=== PATIENT | female | born 1990 | race Caucasian/White ===

== ENCOUNTER 2021-01-26 17:26 | Emergency (ER) | payer OTHER, SELFPAY ==
[2021-01-26 17:30] VITALS: BP 159/84; PULSE 72; RESP 18; TEMP 36.6; O2SAT 98; BMI 36.0
--- NOTE | 2021-01-26 18:20 | ED_ITS ---
HPI - Eye Problem General Chief complaint: Eye Problems Stated complaint: eye issue Time Seen by Provider: 01/26/21 17:50 Source: patient and family Mode of arrival: ambulatory Limitations: no limitations History of Present Illness HPI Narrative: 30-year-old female presenting to the ED with a stye to her left lower eyelid since 01/14/2021. She reports that she was seen at another place and was given p.o. antibiotics Bactrim b.i.d. x 5 days and erythromycin. Patient reports that her swelling improved although she feels like she needed antibiotics for longer. She denies any visual changes or any injuries or any thoughts of foreign bodies or purulent drainage or any other symptoms complaints or concerns at this time. chief complaint: other (Left lower eyelid swelling) Onset (ago): day(s) (Since 01/14/2021) Onset description: gradual Duration: constant and other (Initially improved after she took Bactrim double strength b.i.d. x5 days and her rhythm ice and ointment although 1 she took it after 5 days it started worsening again) Location: left eye Eye Symptoms: other (Lump on left lower eyelid) Place: home Mechanism: none Severity: mild If Pain, Quality: aching Associated symptoms: none Treatments Prior to Arrival: other (See above) Related Data Home Medications Medication Instructions Recorded Confirmed cholecalciferol (vitamin D3) 25 25 mcg PO DAILY 12/07/20 12/07/20 mcg (1,000 unit) capsule fluoxetine 20 mg capsule mg PO 12/07/20 12/07/20 lorazepam 1 mg tablet 1 mg PO BID 12/07/20 12/07/20 Previous Rx's Medication Instructions Recorded albuterol sulfate 90 mcg/actuation 1 inh INHALATION QID PRN 30 Days 12/07/20 aerosol inhaler (ProAir HFA) #18 g budesonide-formoterol HFA 160 2 puff INHALATION BID 30 Days 12/07/20 mcg-4.5 mcg/actuation aerosol #10.2 g inhaler (Symbicort) omeprazole 20 mg capsule,delayed 20 mg PO DAILY 90 Days #90 cap 12/07/20 release erythromycin 5 mg/gram (0.5 %) eye 0.5 inch OPHTHALMIC (EYE) TID #1 g 01/14/21 ointment sulfamethoxazole 800 1 tab PO BID 5 Days #10 tab 01/14/21 mg-trimethoprim 160 mg tablet (Bactrim DS) cephalexin 500 mg capsule 500 mg PO Q6H 14 Days #56 cap 01/26/21 erythromycin 5 mg/gram (0.5 %) eye 0.5 inch OPHTHALMIC (EYE) QID 7 01/26/21 ointment Days #3.5 g sulfamethoxazole 800 1 tab PO BID 14 Days #28 tab 01/26/21 mg-trimethoprim 160 mg tablet (Bactrim DS) Allergies Allergy/AdvReac Type Severity Reaction Status Date / Time No Known Allergies Allergy Verified 01/14/21 15:38 Review of Systems Review of Systems: Constitutional : No fevers, no chills, No changes in activity, No lethargy, No recent prior head injury, No agitation, No increased fussiness ENT/Mouth : No Ear Pain, No Nasal discharge/drainage Eyes: + left lower eyelid swelling, No Vision changes/blurry/decreased vision, No Eye Pain, No Swelling, No Redness, No Foreign Body, No Photophobia, no discharge, no drainage, no itching, no contact lens uses, no recent welding, no bleeding Cardiovascular : No Chest Pain, No SOB Respiratory : No Cough Gastrointestinal : No Nausea, No Vomiting, No abdominal Pain Genitourinary : No Dysuria, No Urinary Frequency, No Urinary Incontinence, No Urgency, No Flank Pain Musculoskeletal : No joint pain, No neck stiffness, No back pain/injury Skin : No lacerations Neuro : No unsteady gait, No Paresthesias, No Loss of Consciousness, No altered mental status, No dizziness, No Headache Denies past medical history of HIV, recent trauma, coagulopathy, recent spinal/ epidural procedure, new medication, URI symptoms, close contacts with similar symptoms, tick bite, or known CO2 exposure. Yes all other systems are reviewed and are negative PMFSH Past Medical History Attestation statement: The following information was validated with the patient. Medical History Anxiety Depression Social History Social History Housing: Apartment Patient Tobacco Use Status: Former Tobacco user Quit Date: 5 years ago e-Cigarette/Vaping Use: Never Used Advance Directives: No Advance Directives Information Provided: No Patient : No Current occupational status: unemployed Physical Exam Vital Signs: Vital Signs: Last Vital Signs Temp 98.8 F 01/26/21 18:25 Pulse 68 01/26/21 18:25 Resp 16 01/26/21 18:25 BP 102/68 01/26/21 18:25 Pulse Ox 99 01/26/21 18:25 BMI result Body Mass Index 36.0 vital signs have been reviewed as normal and appeared to be correct. Blood pressure normal. Heart rate normal. Respiration rate normal. Temperature normal. Oxygen saturation normal. Appearance: Alert. Oriented X3. No acute distress. Head: Normal external exam. Normocephalic. Atraumatic Eyes: PERRLA. EOMI. Conjunctiva are normal. Cornea are normal. Funduscopic exam within normal limits. Sclera normal. Right eyelids within normal limits. Left eyelid with a stye no drainage noted. No papilledema noted. Anterior chamber normal. No photophobia noted. Pressure to right eye is . Pressure to left eye is . Visual acuity to right eye 20/. Visual acuity to left eye 20/. ENT: EAC normal. TM's Normal. Pharynx normal. Uvula midline. Moist mucous mem branes. Neck: Normal inspection. Neck supple. FROM. No adenopathy. No meningeal signs. CVS: Normal heart rate and rhythm. Heart sound normal. No murmurs noted. Pulses normal throughout. Respiratory: No respiratory distress. Painless inspiration. Breath sounds normal. Back: Full range of motion noted. Skin: Skin warm and dry. Normal skin color. Normal skin turgor. No rashes/lesions/lacerations noted. Extremities: Extremities exhibit normal range of motion. Extremities nontender. Neuro: Oriented X 3. No motor deficit. No sensory deficit. Reflexes normal. Course Course Course Narrative: 30-year-old female presenting to the ED with a stye to her left lower eyelid since 01/14/2021. She reports that she was seen at another place and was given p.o. antibiotics Bactrim b.i.d. x 5 days and erythromycin. Patient reports that her swelling improved although she feels like she needed antibiotics for longer. She denies any visual changes or any injuries or any thoughts of foreign bodies or purulent drainage or any other symptoms complaints or concerns at this time. Patient is now s/p I&D with needle aspiration to the stye to his left lower eyelid. Patient tolerated procedure well. No complications. Will DC home with another course of Bactrim as patient reports her symptoms were improving and erythromycin instructions return if any new or worsening symptoms to follow up with Dr. Hansen. Patient understands agrees with this plan. MDM - Eye Problem Medical Records Attestation: I reviewed the patient's medical records. Procedures Abscess I/D Site: other (Left lower eyelid) Side (if applicable): left Technique: needle aspiration Sent for culture/gram staining?: No Irrigation: Yes Packing used?: none Complications: other (No complications) Discharge Plan Discharge Clinical Impression: External hordeolum Patient Disposition: Home, Self-Care Instructions: [facility] (ED) Prescriptions: New sulfamethoxazole-trimethoprim [Bactrim DS] 800-160 mg tablet 1 tab PO BID 14 Days Qty: 28 RF: 0 cephalexin 500 mg capsule 500 mg PO Q6H 14 Days Qty: 56 RF: 0 erythromycin 5 mg/gram (0.5 %) ointment 0.5 inch ophthalmic (eye) QID 7 Days Qty: 3.5 RF: 1 No Action fluoxetine 20 mg capsule PO RF: 0 lorazepam 1 mg tablet 1 mg PO BID RF: 0 cholecalciferol (vitamin D3) 25 mcg (1,000 unit) capsule 25 mcg PO DAILY RF: 0 omeprazole 20 mg capsule,delayed release(DR/EC) 20 mg PO DAILY 90 Days Qty: 90 RF: 3 budesonide-formoterol [Symbicort] 160-4.5 mcg/actuation HFA aerosol inhaler 2 puff inhalation BID 30 Days Qty: 10.2 RF: 3 albuterol sulfate [ProAir HFA] 90 mcg/actuation HFA aerosol inhaler 1 inh inhalation QID PRN (Reason: shortness of breath or wheezing) 30 Days Qty: 18 RF: 6 sulfamethoxazole-trimethoprim [Bactrim DS] 800-160 mg tablet 1 tab PO BID 5 Days Qty: 10 RF: 0 erythromycin 5 mg/gram (0.5 %) ointment 0.5 inch ophthalmic (eye) TID Qty: 1 RF: 0 Referrals: Forest Hansen [Physician] - 2 days Nenita Morrow MD [Primary Care Provider] - 2 days Print Language: Welsh
[2021-01-26 18:25] VITALS: BP 102/68; PULSE 68; RESP 16; TEMP 37.1; O2SAT 99
[2021-01-26] MEDS: Erythromycin Base 0.5% Oph Oin 1 GM TUBE 1 CM EYE-LEFT (18:51)
[2021-01-26] MEDS: Sulfamethox/Trimeth 800/160 TABLET 1 TAB PO (18:51)
== END 2021-01-26 18:58 | disposition home or self-care (01) ==
PROVIDERS: Emergency Provider Emergency Medicine; PCP Internal Medicine
DX: H00.015 Hordeolum externum left lower eyelid (principal); H00.035 Abscess of left lower eyelid; Z79.899 Other long term (current) drug therapy
CPT/HCPCS: 67700; 99283; 99284

== ENCOUNTER 2021-04-27 06:32 | Outpatient (REF) | payer OTHER, SELFPAY ==
[2021-04-27 07:19] LABS: Hematocrit 42.9 % (37.0-47.0); Hemoglobin 14.4 g/dl (12.0-16.0); Mean Corpuscular HGB Conc 33.6 g/dl (31.0-35.0); Mean Corpuscular Hemoglobin 30.5 pg (27.0-33.0); Mean Corpuscular Volume 90.9 fL (80.0-98.0); Mean Platelet Volume 9.9 fL (9.4-12.3); Platelet Count 359 X10*3/uL (160-400); Red Blood Count 4.72 X10*6/uL (4.20-5.50); Red Cell Distribution Width 12.5 % (11.0-16.0); White Blood Count 11.9 X10*3/uL (4.8-10.8)
[2021-04-27 08:09] LABS: Atypical Lymph Absolute Manual 0.5 x10*3/uL; Atypical Lymphs Percent Manual 4 % (0-6); Basophils Abs Manual 0.6 X10*3/uL (0.0-0.2); Basophils Percent Manual 5 % (0-2); Eosinophils Absolute Manual 0.5 X10*3/uL (0.0-0.4); Eosinophils Percent Manual 4 % (0-4); Lymphocytes Absolute Manual 5.1 X10*3/uL (1.2-4.9); Lymphocytes Percent Manual 43 % (20-40); Monocytes Absolute Manual 0.6 X10*3/uL (0.1-1.2); Monocytes Percent Manual 5 % (2-11); Neutrophils Percent Manual 39 % (45-73); TSH reflex Free T4 4.64 uIU/mL (0.32-4.0)
[2021-04-27 08:10] LABS: Alanine Aminotransferase 13 U/L (0-31); Albumin Level 4.2 g/dL (3.5-5.0); Alkaline Phosphatase 69 U/L (39-117); Anion Gap 13 (12-20); Aspartate Amino Transferase 16 U/L (5-31); Bilirubin Total 0.3 mg/dL (0.0-1.0); Blood Urea Nitrogen 10 mg/dL (9-16); Calcium 9.7 mg/dL (8.4-10.2); Carbon Dioxide 27 mmol/L (22-29); Chloride 105 mmol/L (96-108); Cholesterol 160 mg/dL; Estimated Glomerular Filt Rate > 60; Glucose Fasting 80 mg/dL (60-99); HDL Cholesterol 42 mg/dL; LDL Cholesterol Calculated 95 mg/dl; Platelet Estimate NORMAL (NORMAL); Platelet Morphology Comment NORMAL; Potassium 4.4 mmol/L (3.3-5.1); RBC Morphology NORMAL; Sodium 141 mmol/L (135-145); Total Protein 7.2 g/dL (6.5-8.0); Triglycerides 116 mg/dL
[2021-04-27 08:52] LABS: Free T4 (Free Thyroxine) 0.92 ng/dL (0.71-1.85)
[2021-04-27 13:45] LABS: Band Neutrophils Percent 0 % (3-5); Neutrophils Absolute Manual 4.6 X10*3/uL (2.0-8.3)
== END 2021-04-27 06:33 | disposition home or self-care (01) ==
LOC: HO.LAB 06:32
PROVIDERS: PCP Internal Medicine; Visit Provider Internal Medicine
DX: Z00.01 Encounter for general adult medical examination with abnormal findings (principal); J45.20 Mild intermittent asthma, uncomplicated; K21.9 Gastro-esophageal reflux disease without esophagitis; E66.09 Other obesity due to excess calories
CPT/HCPCS: 36415; 80053; 80061; 84439; 84443; 85007; 85025; 85027

== ENCOUNTER 2021-06-20 11:09 | Outpatient (REF) | payer OTHER, SELFPAY ==
[2021-06-20 11:14] VITALS: BP 125/78; PULSE 75; RESP 16; TEMP 37.1; O2SAT 96
[2021-06-20 11:15] VITALS: BMI 35.2
[2021-06-20 12:42] VITALS: BP 150/80; PULSE 78; RESP 16; O2SAT 100
== END 2021-06-20 11:10 | disposition home or self-care (01) ==
LOC: HO.MS 11:09
PROVIDERS: PCP Internal Medicine; Visit Provider Ophthalmology
PROC: (CPT 67800; principal; 2021-06-20 13:40)
DX: H00.11 Chalazion right upper eyelid (principal); H00.15 Chalazion left lower eyelid; H02.881 Meibomian gland dysfunction right upper eyelid; H02.884 Meibomian gland dysfunction left upper eyelid; F32.9 Major depressive disorder, single episode, unspecified; Z79.899 Other long term (current) drug therapy
CPT/HCPCS: 67800; J3300

== ENCOUNTER 2021-07-22 11:22 | Outpatient (REF) | payer OTHER, SELFPAY ==
[2021-07-22 11:32] LABS: MANUAL DIFF FLAG NO
[2021-07-22 11:47] LABS: Basophils Percent Auto 0.3 % (0-2); Eosinophils Absolute Auto 0.2 X10*3/uL (0.0-0.4); Eosinophils Percent Auto 1.8 % (0-4); Hematocrit 44.9 % (37.0-47.0); Hemoglobin 15.3 g/dl (12.0-16.0); Imm Gran Abs Auto 0.03 X10*3/uL (0.00-0.03); Imm Gran Pct Auto 0.3 % (0.0-0.4); Lymphocytes Absolute Auto 3.6 X10*3/uL (1.2-4.9); Mean Corpuscular HGB Conc 34.1 g/dl (31.0-35.0); Mean Corpuscular Volume 90.9 fL (80.0-98.0); Mean Platelet Volume 9.7 fL (9.4-12.3); Monocytes Absolute Auto 0.7 X10*3/uL (0.1-1.2); Monocytes Percent Auto 6.2 % (2-11); Neutrophils Absolute Auto 6.1 x10*3/uL (2.0-8.3); Neutrophils Percent Auto 57.4 % (45-73); Platelet Count 344 X10*3/uL (160-400); Red Blood Count 4.94 X10*6/uL (4.20-5.50); Red Cell Distribution Width 12.5 % (11.0-16.0); White Blood Count 10.6 X10*3/uL (4.8-10.8)
[2021-07-22 13:25] LABS: TSH reflex Free T4 1.43 uIU/mL (0.32-4.0)
== END 2021-07-22 11:23 | disposition home or self-care (01) ==
LOC: HO.LAB 11:22
PROVIDERS: PCP Internal Medicine; Visit Provider Internal Medicine
DX: Z00.01 Encounter for general adult medical examination with abnormal findings (principal); R79.89 Other specified abnormal findings of blood chemistry; E66.09 Other obesity due to excess calories; K21.9 Gastro-esophageal reflux disease without esophagitis; J45.20 Mild intermittent asthma, uncomplicated
CPT/HCPCS: 36415; 84443; 85025

== ENCOUNTER 2021-10-17 11:20 | Emergency (ER) | payer OTHER, SELFPAY ==
[2021-10-17 11:46] VITALS: BP 142/69; PULSE 65; RESP 19; TEMP 36.6; O2SAT 98; BMI 32.5
[2021-10-17] MEDS: Tetracaine HCl/PF 0.5% Oph Sol 4 ML DROPS 1 DROP EYE-LEFT (15:00)
[2021-10-17] MEDS: Fluorescein Sodium STRIP 1 STRIP EYE-LEFT (15:00)
--- NOTE | 2021-10-17 15:11 | ED.EYEPROB ---
HPI - Eye Problem General Chief complaint: Eye Problems Stated complaint: L eye red/irritation Time Seen by Provider: 10/17/21 14:55 Source: patient Mode of arrival: ambulatory Limitations: no limitations History of Present Illness HPI Narrative: Patient presents emergency department for evaluation of the left eye itchiness and question of foreign body. She states that she awoke this morning and was itching her eye then she suddenly felt discomfort. She thought after looking in the mirror that she could see what she describes as a tear/ film that would not fall. Her symptoms have overall improved since this morning. But still has some mild itchiness. She does report a history of recurrent styes and watery eyes with itchiness at baseline Related Data Home Medications Medication Instructions Recorded Confirmed cholecalciferol (vitamin D3) 25 25 mcg PO DAILY 12/07/20 07/27/21 mcg (1,000 unit) capsule fluoxetine 20 mg capsule mg PO 12/07/20 07/27/21 lorazepam 1 mg tablet 1 mg PO BID 12/07/20 07/27/21 Previous Rx's Medication Instructions Recorded albuterol sulfate 90 mcg/actuation 1 inh inhalation QID PRN shortness 12/07/20 aerosol inhaler (ProAir HFA) of breath or wheezing 30 days #18 grams omeprazole 20 mg capsule,delayed 20 mg PO DAILY 90 days #90 caps 12/07/20 release erythromycin 5 mg/gram (0.5 %) eye 0.5 inch ophthalmic (eye) TID #1 g 01/14/21 ointment budesonide-formoterol HFA 160 2 puff inhalation BID 30 days 05/04/21 mcg-4.5 mcg/actuation aerosol #10.2 grams inhaler (Symbicort) nitrofurantoin 100 mg PO Q12H 3 days #6 caps 05/04/21 monohydrate/macrocrystals 100 mg capsule (Macrobid) Allergies Allergy/AdvReac Type Severity Reaction Status Date / Time No Known Allergies Allergy Verified 07/27/21 16:02 Review of Systems Review of Systems: Eye: Left eye itchiness, foreign body sensation PMFSH Past Medical History Attestation statement: The following information was validated with the patient. Source: old records reviewed Medical History Anxiety Depression Family History Family History Mother Mental health disorder Social History Social History Housing: Apartment Patient Tobacco Use Status: Former Tobacco user Quit Date: 5 years ago e-Cigarette/Vaping Use: Never Used Advance Directives: No Advance Directives Information Provided: No Current occupational status: unemployed Cognitive needs: No Hearing needs: No Vision needs: Yes Physical Exam Vital Signs: Vital Signs: Last Vital Signs Temp 98 F 10/17/21 11:46 Pulse 65 10/17/21 11:46 Resp 19 10/17/21 11:46 BP 142/69 H 10/17/21 11:46 Pulse Ox 98 10/17/21 11:46 O2 Del Method 10/17/21 11:46 BMI result Body Mass Index 32.5 Appearance: Alert.?Oriented to person, place and time. No acute distress.?Normal affect. Eyes: Pupils equal, round and reactive to light.? Sclera white conjunctiva pink. Eye lash present to the left lateral lower canthus ENT: Pharynx normal.?? Neck: Normal inspection.? Neck supple.?? CVS: Heart sounds normal. Normal heart rate and rhythm.? Pulses normal.?? Respiratory: No respiratory distress.? Lung sounds clear to auscultation bilaterally?? Abdomen: Soft and non-tender. Skin: Skin warm and dry.? Normal skin color.? Extremities: No lower extremity edema.? Neuro: Moves all extremities spontaneously. Sensation intact bilaterally. No motor deficits Ambulates with normal steady gait. Course Course Course Narrative: Patient is a 30-year-old female who presents to the emergency department for evaluation of left eye itchiness wateriness. This reportedly occurs at baseline however seemed worse today and she thought as though there was a foreign body or film to the eye. Upon examination there was an eyelash stuck in the lateral canthus which was removed. No fluorescein uptake. Not consistent with corneal abrasion, sclerae disc, perceptual or orbital cellulitis. May be early conjunctivitis however given she has these symptoms chronically would advise continuing to monitor, using moist compresses, and gentle lid scrubs has previously performing. 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 Discussed worrisome signs and symptoms to return back to the emergency department for periods questions were answered, and patient was discharged home in stable condition. MDM - Eye Problem Medical Records Attestation: I reviewed the patient's medical records. Discharge Plan Discharge Clinical Impression: Watery eyes Patient Disposition: Home, Self-Care Additional Instructions: An eyelash was removed from your eye today. There is no evidence of an abrasion or scratch to the surface of your eye As we discussed at this time it does not appear as though you have a bacterial infection of the eye Continue with warm compresses and gentle lid scrubs. 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 [employer] as needed Return to the emergency with any or worsening symptoms or concerns Prescriptions: No Action nitrofurantoin monohyd/m-cryst [Macrobid] 100 mg capsule 100 mg PO Q12H 3 Days Qty: 6 0RF Rx Instructions: must administer with a meal/food budesonide-formoterol [Symbicort] 160-4.5 mcg/actuation HFA aerosol inhaler 2 puff inhalation BID 30 Days Qty: 10.2 3RF fluoxetine 20 mg capsule PO lorazepam 1 mg tablet 1 mg PO BID cholecalciferol (vitamin D3) 25 mcg (1,000 unit) capsule 25 mcg PO DAILY omeprazole 20 mg capsule,delayed release(DR/EC) 20 mg PO DAILY 90 Days Qty: 90 3RF albuterol sulfate [ProAir HFA] 90 mcg/actuation HFA aerosol inhaler 1 inh inhalation QID PRN (Reason: shortness of breath or wheezing) 30 Days Qty: 18 6RF erythromycin 5 mg/gram (0.5 %) ointment 0.5 inch ophthalmic (eye) TID Qty: 1 0RF
== END 2021-10-17 16:27 | disposition home or self-care (01) ==
PROVIDERS: Emergency Provider Emergency Medicine; PCP Internal Medicine
DX: S00.252A Superficial foreign body of left eyelid and periocular area, initial encounter (principal); X58.XXXA Exposure to other specified factors, initial encounter; Y93.9 Activity, unspecified; Y92.9 Unspecified place or not applicable; Y99.9 Unspecified external cause status
CPT/HCPCS: 99283

== ENCOUNTER 2022-01-21 09:01 | Outpatient (REF) | payer OTHER, SELFPAY ==
[2022-01-21 09:29] LABS: MANUAL DIFF FLAG NO
[2022-01-21 09:57] LABS: Basophils Absolute Auto 0.1 X10*3/uL (0.0-0.2); Basophils Percent Auto 0.7 % (0-2); Eosinophils Absolute Auto 0.3 X10*3/uL (0.0-0.4); Eosinophils Percent Auto 3.8 % (0-4); Hematocrit 42.1 % (37.0-47.0); Hemoglobin 14.2 g/dl (12.0-16.0); Imm Gran Abs Auto 0.02 X10*3/uL (0.00-0.03); Imm Gran Pct Auto 0.2 % (0.0-0.4); Lymphocytes Absolute Auto 3.3 X10*3/uL (1.2-4.9); Lymphocytes Percent Auto 40.4 % (20-40); Mean Corpuscular HGB Conc 33.7 g/dl (31.0-35.0); Mean Corpuscular Hemoglobin 31.8 pg (27.0-33.0); Mean Corpuscular Volume 94.2 fL (80.0-98.0); Mean Platelet Volume 9.7 fL (9.4-12.3); Monocytes Absolute Auto 0.7 X10*3/uL (0.1-1.2); Monocytes Percent Auto 8.3 % (2-11); Neutrophils Absolute Auto 3.8 x10*3/uL (2.0-8.3); Neutrophils Percent Auto 46.6 % (45-73); Platelet Count 327 X10*3/uL (160-400); Red Blood Count 4.47 X10*6/uL (4.20-5.50); Red Cell Distribution Width 11.9 % (11.0-16.0); White Blood Count 8.2 X10*3/uL (4.8-10.8)
[2022-01-21 10:32] LABS: Alanine Aminotransferase 16 U/L (0-31); Albumin Level 4.3 g/dL (3.5-5.0); Alkaline Phosphatase 65 U/L (39-117); Anion Gap 12 (12-20); Aspartate Amino Transferase 14 U/L (5-31); Bilirubin Total 0.5 mg/dL (0.0-1.0); Blood Urea Nitrogen 10 mg/dL (9-16); Calcium 9.7 mg/dL (8.4-10.2); Carbon Dioxide 27 mmol/L (22-29); Chloride 103 mmol/L (96-108); Cholesterol 147 mg/dL; Estimated Glomerular Filt Rate > 60; Glucose Fasting 87 mg/dL (60-99); HDL Cholesterol 43 mg/dL; LDL Cholesterol Calculated 93 mg/dl; Potassium 4.1 mmol/L (3.3-5.1); Sodium 138 mmol/L (135-145); TSH reflex Free T4 1.75 uIU/mL (0.32-4.0); Total Protein 7.1 g/dL (6.5-8.0); Triglycerides 57 mg/dL
== END 2022-01-21 09:02 | disposition home or self-care (01) ==
LOC: HO.LAB 09:01
PROVIDERS: PCP Internal Medicine; Visit Provider Internal Medicine
DX: Z00.01 Encounter for general adult medical examination with abnormal findings (principal); E66.09 Other obesity due to excess calories; K21.9 Gastro-esophageal reflux disease without esophagitis; J45.40 Moderate persistent asthma, uncomplicated; F20.9 Schizophrenia, unspecified
CPT/HCPCS: 36415; 80053; 80061; 84443; 85025

== ENCOUNTER 2023-01-06 08:48 | Outpatient (REF) | payer OTHER, SELFPAY ==
[2023-01-06 09:29] LABS: Estimated Average Glucose 94 mg/dL; Hemoglobin A1c % 4.9 % (<6.0)
[2023-01-06 09:55] LABS: Cholesterol 151 mg/dL (<200); HDL Cholesterol 53 mg/dL (>40); LDL Cholesterol Calculated 88 mg/dL (<100); Triglycerides 54 mg/dL (<150)
[2023-01-06 10:05] LABS: Thyroid Stimulating Hormone 0.85 uIU/mL (0.32-4.0)
[2023-01-08 08:07] LABS: ~HepC Num1 0.15 S/CO (0.00-0.79); ~Hepatitis C Antibody Nonreactive (Nonreactive)
[2023-01-10 20:43] LABS: Testosterone, Total 42 ng/dL (2-45)
== END 2023-01-06 08:49 | disposition home or self-care (01) ==
LOC: HO.LAB 08:48
PROVIDERS: PCP Nurse Practitioner Family; Visit Provider Nurse Practitioner Family
DX: N94.6 Dysmenorrhea, unspecified (principal); Z11.59 Encounter for screening for other viral diseases
CPT/HCPCS: 36415; 80061; 83036; 83498; 84403; 84443; 86803